=== PATIENT | female | born 1970 | race Caucasian/White ===

== ENCOUNTER 2017-04-21 20:17 | Emergency (ER) | payer SELFPAY ==
[2017-04-21 20:22] VITALS: BP 143/93; PULSE 68; TEMP 98.3; BMI 32.1
--- NOTE | 2017-04-21 20:22 | PDOC ---
Rapid Medical Evaluation Chief Complaint: Pain Time Seen by Provider: 04/21/17 20:19 Medical Evaluation: Allergies Allergy/AdvReac Type Severity Reaction Status Date / Time No Known Allergies Allergy Verified 06/29/14 13:36 The patient presents with a chief complaint of: right hip pain down right leg started after feeling a click 5 days ago with no improvement in pain. pain worse with bending. denies numbness and tingling to lower extremity I have performed a brief in-person evaluation of this patient; Pertinent physical exam findings. patient alert ox3, limited rom able to weight bear I have ordered the following: right hip xray, urine The patient will proceed to the ED for further evaluation. 04/21/17 20:19 04/21/17 20:22
[2017-04-21] MEDS ORDERED: KETOROLAC TROMETHAMINE 60 MG/2 ML VIAL IM ONE (20:46)
[2017-04-21] MEDS ORDERED: diazePAM 5 MG TABLET PO ONE (20:46)
[2017-04-21] MEDS ORDERED: KETOROLAC TROMETHAMINE 60 MG/2 ML VIAL ONE (20:49)
[2017-04-21] MEDS ORDERED: diazePAM 5 MG TABLET ONE (20:49)
--- NOTE | 2017-04-21 20:53 | PDOC ---
History of Present Illness - General Chief Complaint: Pain Stated Complaint: RT SIDE PAIN Time Seen by Provider: 04/21/17 20:19 History Source: Patient Exam Limitations: No Limitations - History of Present Illness Initial Comments: 04/21/17 20:59 MY CHIEF COMPLAINT: LOWER BACK PAIN HISTORY OF PRESENT ILLNESS: Patient is a 46-year-old female with no significant medical history here today complaining of lower back pain that started 4 days ago with a sensation of a click to her right hip area within 30 minutes pain had radiated across to her lower back. Patient reports that yesterday she felt pain radiating down her right anterior leg to her knee. Patient denies any saddle anesthesia, incontinency, weakness or tingling of her legs. Patient denies any previous back injuries. Patient also reports muscle spasming of her lower back. Patient reports the pain is worse when lying on her right side. Patient took ibuprofen at 10 AM today. 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 Patient denies any abdominal pain. Occurred: reports: other (RT. HIP/BACK PAIN X 4 DAYS, PAIN RADIATING DOWN RT. ANTERIOR LEG TO KNEE YESTERDASY ) Pain Location: reports: back (LOWER BACK PAIN X 4 DAYS, RADIATES TO RT ANTERIOR THIGH YESTERDAY ), other (RT. HIP PAIN STARTED 4 DAYS AGO WITH A CLICK FELT THAN 30 MINUTES LATER RADIATED ACROSS LOWER BACK) Method of Injury: Yes: other (BENDING AT WORK 4 DAYS AGO) Modifying Factors: improves with: None Loss of Consciousness: no loss of consciousness Associated Symptoms (Fall): denies symptoms, muscle spasms (LOWER BACK PAIN X 4 DAYS, YESTERDAY PAIN RT. ANTERIOR THIGH ) Past History - Past Medical History Allergies/Adverse Reactions: Allergies Allergy/AdvReac Type Severity Reaction Status Date / Time No Known Allergies Allergy Verified 04/21/17 20:22 Home Medications: Ambulatory Orders No Home Medications 0 dose .ROUTE UTDICT 07/25/12 Cyclobenzaprine HCl [Flexeril 10 mg] 10 mg PO Q8H PRN #21 tablet MDD 3 04/21/17 Naproxen [Naprosyn -] 500 mg PO BID PRN #14 tablet MDD 2 04/21/17 COPD: No - Family Disease History Family Disease History: Diabetes: Mother, CA: Mother - Immunization History Immunization Up to Date: Yes - Suicide/Smoking/Psychosocial Hx Smoking Status: No Smoking History: Never smoked Number of Cigarettes Smoked Daily: 0 Hx Alcohol Use: No Substance Use Type: None Trauma Specific PMHX - Complaint Specific PMHX Arthritis: No Back Injury: No Neck Injury: No Hx Sacro Iliac Joint Dysfunction: No Review of Systems - Review of Systems Able to Perform ROS?: Yes Constitutional: No: Symptoms Reported HEENTM: No: Symptoms Reported Respiratory: No: Symptoms reported Cardiac (ROS): No: Symptoms Reported ABD/GI: No: Symptoms Reported : No: Symptoms Reported Musculoskeletal: Yes: Back Pain (FELT CLICK RT. HIP AREA 4 DAYS AGO, 30 MINUTES LATER RADIATED ACROSS BACK, YESTERDAY PAIN RADIATING DOWN RT. ANTERIOR THIGH), Muscle Pain (SPASMING OF LOWER BACK MUSCLES ) Integumentary: No: Symptoms Reported Neurological: No: Symptoms reported *Physical Exam - Vital Signs Last Vital Signs Temp Pulse Resp BP Pulse Ox 98.3 F 68 18 143/93 100 04/21/17 20:19 04/21/17 20:19 04/21/17 20:19 04/21/17 20:19 04/21/17 20:19 - Physical Exam General Appearance: Yes: Appropriately Dressed Respiratory/Chest: positive: Lungs Clear, Normal Breath Sounds. negative: Chest Tender, Respiratory Distress Cardiovascular: positive: Regular Rhythm, Regular Rate, S1, S2 Gastrointestinal/Abdominal: positive: Normal Bowel Sounds, Soft. negative: Tender, Organomegaly, Increased Bowel Sounds, Decreased BS, Protuberent, Distended, Guarding, Rebound, Tenderness, Hernia, Mass, Hepatomegaly, Spleenomegaly Musculoskeletal: positive: Normal Inspection, Decreased Range of Motion (AT WAIST WITH FLEXION/EXTENSION), Muscle Spasm (PARASPINAL MUSCLE LUMBAR B/L ). negative: CVA Tenderness, CVA Tenderness (R), CVA Tenderness (L), Vertebral Tenderness Extremity: positive: Normal Capillary Refill, Normal Inspection, Normal Range of Motion Integumentary: positive: Normal Color Neurologic: positive: Normal Response, Motor Strength 5/5 (B/L LOWER EXTREMIIES ), Respond to painful stimul (B/L LOWER EXTREMITIES ), Responsive, Other ( NEGATIVE SLR B/L ). negative: Numbness, Sensory Deficit Deep Tendon Reflexes: Knee (L): 3+, Knee (R): 3+ ED Treatment Course - ADDITIONAL ORDERS Additional order review: Laboratory Results 04/21/17 20:30 Urine HCG, Qual Negative - RADIOLOGY Radiology Studies Ordered: Category Date Time Status SPINE-LUMBAR SACRAL [RAD] Stat Radiology 04/21/17 20:47 Ordered Medical Decision Making - Medical Decision Making 04/21/17 21:02 Patient is a 46-year-old female with no significant medical history here today complaining of lower back pain that started 4 days ago with a sensation of a click to her right hip area within 30 minutes pain had radiated across to her lower back. Patient reports that yesterday she felt pain radiating down her right anterior leg to her knee. Patient denies any saddle anesthesia, incontinency, weakness or tingling of her legs. Patient denies any previous back injuries. Patient also reports muscle spasming of her lower back. Patient reports the pain is worse when lying on her right side. Patient took ibuprofen at 10 AM today. 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 Patient denies any abdominal pain. LOWER BACK PAIN RT. HIP PAIN PLAN: RME ORDERED URINE HCG NEGATIVE XRAY RT. HIP/PELVIS mild degenerative arthritis with no fracture or acute pathology PER DR. GALLEGOS ORDERED IN [facility] TORADOL 60 MG IM VALIUM 5 MG PO NOW XRAY SPINE LUMBAR/SACRAL MILD DEGENERATIVE ARTHRITIS PER DR. GALLEGOS 04/21/17 21:35 FEELING BETTER WILL DISCHARGE TO HOME NAPROSYN 500 MG Q 12 HR PRN PAIN # 14 TABS FLEXERIL 10 MG Q 8 HR PRN MUSCLE SPASM # 21 TABS START TOMORROW *DC/Admit/Observation/Transfer Diagnosis at time of Disposition: Lumbar pain with radiation down right leg - Discharge Dispostion Disposition: HOME Condition at time of disposition: Stable - Referrals - Patient Instructions Additional Instructions: Follow up with orthopedist at [facility] at [phone] call for appointment Avoid any strenuous activities or exercise until pain has resolved Return to emergency room if any numbness of legs or private area or any loss of control of bladder or bowel movement or weakness of legs Patient voiced understanding of discharge instructions and all questions were answered - Post Discharge Activity Forms/Work/School Notes: Back to Work
== END 2017-04-21 21:47 | disposition home or self-care (01) ==
LOC: JERFT 20:17
PROC: 3E0233Z Introduction of Anti-inflammatory into Muscle, Percutaneous Approach (ICD-10-PCS; principal; 2017-04-21)
DX: M54.5 Low back pain (principal); M79.604 Pain in right leg
CPT/HCPCS: 72100-TC; 73523-TC; 84703; 99281-25

== ENCOUNTER 2017-06-06 23:00 | Emergency (ER) | payer OTHER ==
[2017-06-06 23:11] VITALS: BP 120/69; PULSE 79; TEMP 98.4
--- NOTE | 2017-06-06 23:46 | PDOC ---
History of Present Illness - General Chief Complaint: Cold Symptoms Stated Complaint: FATIGUE Time Seen by Provider: 06/06/17 23:39 History Source: Patient Exam Limitations: No Limitations - History of Present Illness Initial Comments: 06/07/17 00:48 Patient is a 46-year-old female who presents emergency department tonight complaining of right ear pain and nausea and vomiting which started today. Patient also admits to chills. Denies fevers, sore throat, cough, body aches, headache, shortness of breath, difficulty breathing. She states she has not been able to keep anything down today and she has vomited 3 times. Past History - Travel Traveled outside of the country in the last 30 days: No Close contact w/someone who was outside of country & ill: No - Past Medical History Allergies/Adverse Reactions: Allergies Allergy/AdvReac Type Severity Reaction Status Date / Time No Known Allergies Allergy Verified 06/06/17 23:08 Home Medications: Ambulatory Orders No Home Medications 0 dose .ROUTE UTDICT 07/25/12 Ofloxacin Otic [Floxin Otic -] 10 drop OT BID #140 drops 06/07/17 Ondansetron [Zofran Odt -] 4 mg SL TID #10 od.tablet 06/07/17 COPD: No - Family Disease History Family Disease History: Diabetes: Mother, [place]: Mother - Immunization History Immunization Up to Date: Yes - Suicide/Smoking/Psychosocial Hx Smoking Status: No Smoking History: Never smoked Number of Cigarettes Smoked Daily: 0 Hx Alcohol Use: No Drug/Substance Use Hx: No Substance Use Type: None Review of Systems - Review of Systems Able to Perform ROS?: Yes Comments:: 06/07/17 00:48 CONSTITUTIONAL: Present: chills Absent: fever, diaphoresis, generalized weakness, malaise, loss of appetite HEENT: Present: r ear pain. Absent: rhinorrhea, nasal congestion, throat pain, throat swelling, difficulty swallowing, mouth swelling, ear pain, eye pain, visual Changes CARDIOVASCULAR: Absent: chest pain, loss of consciousness, palpitations, irregular heart rate, peripheral edema RESPIRATORY: Absent: cough, shortness of breath, dyspnea with exertion, orthopnea, wheezing, stridor, hemoptysis GASTROINTESTINAL: Present: nausea, vomiting Absent: abdominal pain, abdominal distension, nausea, vomiting, diarrhea, constipation, melena, hematochezia GENITOURINARY: Absent: dysuria, frequency, urgency, hesitancy, hematuria, flank pain, genital pain MUSCULOSKELETAL: Absent: myalgia, arthralgia, joint swelling SKIN: Absent: rash, itching, pallor HEMATOLOGIC/IMMUNOLOGIC: Absent: easy bleeding, easy bruising, lymphadenopathy, frequent infections ENDOCRINE: Absent: unexplained weight gain, unexplained weight loss, heat intolerance, cold intolerance NEUROLOGIC: Absent: headache, focal weakness or paresthesias, dizziness, unsteady gait, seizure, mental status changes, bladder or bowel incontinence PSYCHIATRIC: Absent: anxiety, depression, suicidal or homicidal ideation, hallucinations. Is the patient limited Sami proficient: No *Physical Exam - Vital Signs Last Vital Signs Temp Pulse Resp BP Pulse Ox 98.4 F 79 16 120/69 100 06/06/17 23:08 06/06/17 23:08 06/06/17 23:08 06/06/17 23:08 06/06/17 23:08 - Physical Exam Comments: 06/07/17 00:49 GENERAL: Well developed, well nourished. Awake and alert. No acute distress. HEENT: Normocephalic, atraumatic. PERRLA, EOMI. No conjunctival pallor. Sclera are non- icteric. Moist mucous membranes. Oropharynx is clear. R ear canal erythema with no swelling. Tragus tender to palpation. NECK: Supple. Full ROM. No JVD. Carotid pulses 2+ and symmetric, without bruits. No thyromegaly. No lymphadenopathy. CARDIOVASCULAR: Regular rate and rhythm. No murmurs, rubs, or gallops. Distal pulses are 2+ and symmetric. PULMONARY: No evidence of respiratory distress. Lungs clear to auscultation bilaterally. No wheezing, rales or rhonchi. ABDOMINAL: Soft. Non-tender. Non-distended. No rebound or guarding. No organomegaly. Normoactive bowel sounds. MUSCULOSKELETAL Normal range of motion at all joints. No bony deformities or tenderness. No CVA tenderness. EXTREMITIES: No cyanosis. No clubbing. No edema. No calf tenderness. SKIN: Warm and dry. Normal capillary refill. No rashes. No jaundice. NEUROLOGICAL: Alert, awake, appropriate. Cranial nerves 2-12 intact. No deficits to light touch and temperature in face, upper extremities and lower extremities. No motor deficits in the in face, upper extremities and lower extremities. Normoreflexic in the upper and lower extremities. Normal speech. Toes are down- going bilaterally. Gait is normal without ataxia. PSYCHIATRIC: Cooperative. Good eye contact. Appropriate mood and affect. ED Treatment Course - LABORATORY CBC & Chemistry Diagram: 06/07/17 00:00 06/07/17 00:00 Medical Decision Making - Medical Decision Making 06/07/17 00:50 Patient is a 46-year-old female who presents with 1 day of nausea vomiting and right ear pain. Ear pain most likely due to the beginning of an otitis externa. No posterior ear pain suggestive of mastoiditis. Otherwise symptoms seem to be viral. Patient also has some posterior erythema to the throat. Will obtain rapid strep at this time. We'll also obtain basic labs and give IV fluids. 06/07/17 03:09 Strep is negative, lab work is unremarkable at this time. Will d/c home with supportive therapy. Will treat for otitis externa at this time. ENT referral given. Pt. understands all discharge instructions and all questions were answered *DC/Admit/Observation/Transfer Diagnosis at time of Disposition: Acute gastroenteritis Otitis externa Qualifiers: Otitis externa type: unspecified type Chronicity: acute Laterality: right Qualified Code(s): H60.501 - Unspecified acute noninfective otitis externa, right ear - Discharge Dispostion Disposition: HOME Condition at time of disposition: Stable Admit: No - Prescriptions Prescriptions: Ofloxacin Otic [Floxin Otic -] 10 drop OT BID #140 drops Ondansetron [Zofran Odt -] 4 mg SL TID #10 od.tablet - Referrals Referrals: Aileen Carlin MD [Primary Care Provider] - Van Kirkpatrick MD [Staff Physician] - - Patient Instructions Printed Discharge Instructions: DI for Viral Gastroenteritis -- Adult, DI for Otitis Externa Additional Instructions: You have an infection of the ear canal. Please use the eardrops as prescribed. You also have a stomach bug. Please drink plenty of fluids. Eat a bland diet including plain toast, applesauce, plain rice. Your prescribed Zofran. You may take this medication every 8 hours as needed for nausea. Please follow-up with ears nose throat or your recurrent ear infections. Referrals been provided for you. Return to the emergency department if you have worsening pain, abdominal pain, or any new or concerning symptoms. - Post Discharge Activity Forms/Work/School Notes: Back to Work
[2017-06-06] MEDS ORDERED: ONDANSETRON 4 MG/2 ML VIAL IVPUSH ONE (23:55)
[2017-06-06] MEDS ORDERED: SODIUM CHLORIDE 1,000 ML IV STA (23:55)
[2017-06-07] MEDS ORDERED: ONDANSETRON 4 MG/2 ML VIAL ONE
[2017-06-07 00:24] LABS: BASO % 0.8 % (0-2.0); EOS % 2.7 % (0-4.5); HEMATOCRIT 39.5 % (32.4-45.2); HEMOGLOBIN 13.1 GM/dL (10.7-15.3); LYMPH % 28.7 % (8-40); MCH 29.4 pg (25.7-33.7); MCHC 33.1 g/dl (32.0-36.0); MEAN CELL VOLUME 88.7 fl (80-96); MEAN PLT VOLUME 8.7 fl (7.5-11.1); MONO % 6.3 % (3.8-10.2); NEUT % 61.5 % (42.8-82.8); PLATELET COUNT 255 K/MM3 (134-434); RBC 4.45 M/mm3 (3.60-5.2); RDW 13.8 % (11.6-15.6); WHITE BLOOD COUNT 9.5 K/mm3 (4.0-10.0)
--- NOTE | 2017-06-07 00:29 | PDOC ---
*Physical Exam - Vital Signs Last Vital Signs Temp Pulse Resp BP Pulse Ox 98.4 F 79 16 120/69 100 06/06/17 23:08 06/06/17 23:08 06/06/17 23:08 06/06/17 23:08 06/06/17 23:08 - Physical Exam Comments: 06/07/17 00:29 The patient was examined by [ARIANA Newton] under my direct supervision. I personally evaluated the patient. I concur with the above findings and the plan of care. ED Treatment Course - LABORATORY CBC & Chemistry Diagram: 06/07/17 00:00 06/07/17 00:00 - ADDITIONAL ORDERS Additional order review: 06/07/17 00:00 Group A Strep Rapid Antigen - Preliminary Throat - Medications Given in the ED: ED Medications Discontinued Medications Generic Name Dose Route Start Last Admin Trade Name Efrenq PRN Reason Stop Dose Admin Ondansetron HCl 4 mg 06/06/17 23:55 06/07/17 00:20 Zofran Injection IVPUSH 06/06/17 23:56 4 mg ONCE ONE Administration *DC/Admit/Observation/Transfer - Referrals Referrals: Aileen Carlin MD [Primary Care Provider] - - Patient Instructions - Post Discharge Activity
[2017-06-07] MEDS ORDERED: IBUPROFEN 600 MG TABLET (FP) PO ONE ×2 (00:37→00:41)
[2017-06-07 01:12] LABS: ALK PHOS 77 U/L (45-117); ANION GAP 8 (8-16); BILIRUBIN,TOTAL 0.2 mg/dL (0.2-1.0); BLOOD UREA NITROGEN 17 mg/dL (7-18); CALCIUM 8.6 mg/dL (8.5-10.1); CHLORIDE 102 mmol/L (98-107); CO2 29 mmol/L (21-32); CREATININE 0.7 mg/dL (0.55-1.02); GLUCOSE,RANDOM 98 mg/dL (74-106); SGPT/ALT 24 U/L (12-78); SODIUM 139 mmol/L (136-145); TOT PROT 6.5 g/dl (6.4-8.2)
[2017-06-07 01:19] LABS: SGOT/AST 23 U/L (15-37)
[2017-06-07 01:25] LABS: LIPASE 102 U/L (73-393)
== END 2017-06-07 02:34 | disposition home or self-care (01) ==
LOC: JER 23:00
PROC: 3E033GC Introduction of Other Therapeutic Substance into Peripheral Vein, Percutaneous Approach (ICD-10-PCS; principal; 2017-06-06)
DX: H60.501 Unspecified acute noninfective otitis externa, right ear (principal); K52.9 Noninfective gastroenteritis and colitis, unspecified
CPT/HCPCS: 36415; 80053; 83690; 85025; 87070; 87430; 99282-25

== ENCOUNTER 2021-09-01 23:06 | Emergency (ER) | payer OTHER ==
[2021-09-01 23:12] VITALS: BP 162/87; PULSE 75; TEMP 97.9; BMI 24.7
[2021-09-01] MEDS ORDERED: ACETAMINOPHEN 1000 MG/100 ML BAG IVPB ONE (23:51)
[2021-09-01] MEDS ORDERED: SODIUM CHLORIDE 0.9% 500 ML INFUS.BAG IV ONE (23:51)
[2021-09-01] MEDS ORDERED: METOCLOPRAMIDE HCL INJECTION 10 MG/2 ML VIAL IVPB ONE (23:51)
[2021-09-01] MEDS ORDERED: ACETAMINOPHEN/CAFFEINE/BUTALBITAL 1 TAB PO ONE (23:59)
[2021-09-02] MEDS ORDERED: METOCLOPRAMIDE HCL INJECTION 10 MG/2 ML VIAL ONE (00:19)
[2021-09-02] MEDS ORDERED: ACETAMINOPHEN INJECTION 100 ML IVPB ONE (00:19)
[2021-09-02] MEDS ORDERED: ACETAMINOPHEN/CAFFEINE/BUTALBITAL 1 TAB ONE (00:19)
== END 2021-09-02 01:34 | disposition home or self-care (01) ==
LOC: JER 23:06
PROC: 3E0333Z Introduction of Anti-inflammatory into Peripheral Vein, Percutaneous Approach (ICD-10-PCS; principal; 2021-09-01)
PROC: 3E033GC Introduction of Other Therapeutic Substance into Peripheral Vein, Percutaneous Approach (ICD-10-PCS; 2021-09-01)
DX: R51.9 Headache, unspecified (principal)
CPT/HCPCS: 70450-TC; 99284-25

== ENCOUNTER 2021-12-31 18:29 | Emergency (ER) | payer OTHER ==
[2021-12-31 19:00] VITALS: BP 126/80; PULSE 70; RESP 18; TEMP 98.3; BMI 32.9
[2021-12-31] MEDS ORDERED: KETOROLAC TROMETHAMINE 30 MG/1 ML VIAL IM ONE (20:12)
[2021-12-31] MEDS ORDERED: diazePAM 5 MG TABLET PO ONE (20:12)
[2021-12-31] MEDS ORDERED: diazePAM 5 MG TABLET ONE (20:15)
[2021-12-31] MEDS ORDERED: KETOROLAC TROMETHAMINE 30 MG/1 ML VIAL ONE (20:15)
== END 2021-12-31 20:22 | disposition home or self-care (01) ==
LOC: JERFT 18:29
PROC: 3E0233Z Introduction of Anti-inflammatory into Muscle, Percutaneous Approach (ICD-10-PCS; principal; 2021-12-31)
DX: M54.50 Low back pain, unspecified (principal); M79.604 Pain in right leg
CPT/HCPCS: 99283-25

== ENCOUNTER 2022-07-26 04:01 | Day surgery (SDC) | payer OTHER ==
[2022-07-24 14:50] VITALS: BMI 32.9
[~2022-07-26 04:01] MED LIST: BUPIVACAINE HCL/PF 0.75% 10 ML VIAL PNB ONE; LIDOCAINE 1% P/F 10 MG/ML VIAL PNB ONE
[2022-07-26] MEDS ORDERED: BUPIVACAINE HCL/PF 0.75% 10 ML VIAL PNB ONE (12:51)
[2022-07-26] MEDS ORDERED: LIDOCAINE 1% P/F 10 MG/ML VIAL PNB ONE (12:51)
[2022-07-26 13:58] VITALS: BP 143/89; PULSE 66; RESP 18; TEMP 98
== END 2022-07-26 13:40 | disposition home or self-care (01) ==
LOC: JASU-SURG 04:01
PROVIDERS: ATTEND Pain Medicine Pain Medicine
PROC: 3E0T33Z Introduction of Anti-inflammatory into Peripheral Nerves and Plexi, Percutaneous Approach (ICD-10-PCS; 2022-07-26)
PROC: BR16YZZ Fluoroscopy of Lumbar Facet Joint(s) using Other Contrast (ICD-10-PCS; 2022-07-26)
PROC: 3E0T3BZ Introduction of Anesthetic Agent into Peripheral Nerves and Plexi, Percutaneous Approach (ICD-10-PCS; principal; 2022-07-26 12:45)
DX: M47.816 Spondylosis without myelopathy or radiculopathy, lumbar region (principal)
CPT/HCPCS: 76000-TC-FY

== ENCOUNTER 2022-11-20 13:22 | Emergency (ER) | payer OTHER ==
[2022-11-20 13:34] VITALS: RESP 18; BMI 30.1
[2022-11-20 14:48] LABS: BASO % 0.7 % (0-2.0); EOS % 1.7 % (0-4.5); HEMATOCRIT 39.3 % (32.4-45.2); LYMPH % 28.1 % (8-40); MCH 28.3 pg (25.7-33.7); MCHC 33.1 g/dl (32.0-36.0); MEAN CELL VOLUME 85.5 fl (80-96); MEAN PLT VOLUME 8.3 fl (7.5-11.1); MONO % 6.8 % (3.8-10.2); NEUT % 62.7 % (42.8-82.8); PLATELET COUNT 260 10^3/uL (134-434); RBC 4.59 M/mm3 (3.60-5.2); RDW 14.5 % (11.6-15.6); WHITE BLOOD COUNT 7.7 K/mm3 (4.0-10.0)
[2022-11-20 14:55] LABS: INR 1.03 (0.83-1.09); PROTHROMBIN TIME (PATIENT) 11.9 SEC (9.7-13.0)
[2022-11-20 15:16] LABS: BLOOD UREA NITROGEN 11.8 mg/dL (7-18)
[2022-11-20 15:19] LABS: CREATININE 0.7 mg/dL (0.55-1.3)
[2022-11-20 15:20] LABS: BILIRUBIN,TOTAL 0.4 mg/dL (0.2-1); TOT PROT 6.3 g/dl (6.4-8.2)
[2022-11-20 18:07] VITALS: BP 146/84; PULSE 77; TEMP 97.3
== END 2022-11-20 18:15 | disposition home or self-care (01) ==
LOC: JER 13:22
DX: R22.42 Localized swelling, mass and lump, left lower limb (principal); M17.12 Unilateral primary osteoarthritis, left knee
CPT/HCPCS: 36415; 73562-TC-LT-FY; 80053; 85025; 85610; 86850; 86900; 86901; 93970-TC; 99285-25

== ENCOUNTER 2022-11-22 05:25 | Day surgery (SDC) | payer OTHER ==
[2022-11-20 14:29] VITALS: BMI 32.9
[~2022-11-22 05:25] MED LIST changes: -BUPIVACAINE HCL/PF 0.75% 10 ML VIAL PNB ONE; +DEXAMETHASONE SOD PHOSPHATE 10 MG/1 ML VIAL IM ONE; +IOHEXOL 180 MG/1 ML ML IJ ONE; -LIDOCAINE 1% P/F 10 MG/ML VIAL PNB ONE; +LIDOCAINE HCL 1% PRESERVATIVE FREE - 30ML VIAL IJ ONE
[2022-11-22] MEDS ORDERED: LIDOCAINE HCL/PF 1% SDV 5ML VIAL ONE (07:22)
[2022-11-22] MEDS ORDERED: DEXAMETHASONE SOD PHOSPHATE 10 MG/1 ML VIAL ONE ×2 (07:22→11:51)
[2022-11-22 11:38] VITALS: RESP 20
[2022-11-22] MEDS ORDERED: LIDOCAINE HCL 1% PRESERVATIVE FREE - 30ML VIAL IJ ONE (11:59)
[2022-11-22] MEDS ORDERED: IOHEXOL 180 MG/1 ML ML IJ ONE ×2 (11:59)
[2022-11-22] MEDS ORDERED: DEXAMETHASONE SOD PHOSPHATE 10 MG/1 ML VIAL IM ONE (11:59)
[2022-11-22 14:02] VITALS: BP 146/82; PULSE 63; TEMP 98.6
[2022-11-22] MEDS ORDERED: ACETAMINOPHEN 500 MG TABLET (FP) PO PRN (14:36)
== END 2022-11-22 13:30 | disposition home or self-care (01) ==
LOC: JASU-SURG 05:25
PROVIDERS: ATTEND Pain Medicine Pain Medicine
PROC: 3E0R3BZ Introduction of Anesthetic Agent into Spinal Canal, Percutaneous Approach (ICD-10-PCS; 2022-11-22)
PROC: 3E0R33Z Introduction of Anti-inflammatory into Spinal Canal, Percutaneous Approach (ICD-10-PCS; principal; 2022-11-22 13:00)
DX: M54.16 Radiculopathy, lumbar region (principal)
CPT/HCPCS: 76000-TC-FY; 81025; J1100

== ENCOUNTER 2023-06-25 04:17 | Day surgery (SDC) | payer OTHER ==
[2023-06-24 11:57] VITALS: BMI 31.8
[2023-06-25 09:35] VITALS: TEMP 97.9
[2023-06-25 11:09] VITALS: PULSE 65
[2023-06-25 11:10] VITALS: BP 138/75; RESP 15
== END 2023-06-25 11:15 | disposition home or self-care (01) ==
LOC: JASU-ENDO 04:17
PROVIDERS: ATTEND Internal Medicine Gastroenterology
PROC: 0DB98ZX Excision of Duodenum, Via Natural or Artificial Opening Endoscopic, Diagnostic (ICD-10-PCS; 2023-06-25)
PROC: 0DB78ZX Excision of Stomach, Pylorus, Via Natural or Artificial Opening Endoscopic, Diagnostic (ICD-10-PCS; 2023-06-25)
PROC: 0DJD8ZZ Inspection of Lower Intestinal Tract, Via Natural or Artificial Opening Endoscopic (ICD-10-PCS; principal; 2023-06-25 10:00)
DX: Z12.11 Encounter for screening for malignant neoplasm of colon (principal); K29.50 Unspecified chronic gastritis without bleeding; B96.81 Helicobacter pylori [H. pylori] as the cause of diseases classified elsewhere; K44.9 Diaphragmatic hernia without obstruction or gangrene; K64.8 Other hemorrhoids; R10.31 Right lower quadrant pain

== ENCOUNTER 2023-12-10 14:11 | Emergency (ER) | payer OTHER ==
[2023-12-10 14:17] VITALS: BP 161/91; PULSE 95; RESP 18; TEMP 98; BMI 30.9
[2023-12-10] MEDS ORDERED: KETOROLAC TROMETHAMINE 15 MG/ML VIAL ONE (15:27)
[2023-12-10] MEDS ORDERED: ACETAMINOPHEN 500 MG TABLET (FP) ONE (15:27)
[2023-12-10] MEDS: ACETAMINOPHEN 500 MG TABLET (FP) PO ONE (15:31)
[2023-12-10] MEDS: KETOROLAC TROMETHAMINE 15 MG/ML VIAL IM ONE (15:31)
== END 2023-12-10 17:21 | disposition home or self-care (01) ==
LOC: JERFT 14:11
PROC: 3E0233Z Introduction of Anti-inflammatory into Muscle, Percutaneous Approach (ICD-10-PCS; principal; 2023-12-10)
DX: M25.511 Pain in right shoulder (principal); M75.101 Unspecified rotator cuff tear or rupture of right shoulder, not specified as traumatic
CPT/HCPCS: 73030-TC-RT-FY; 99284-25